=== PATIENT | female | born 1975 | race American Indian/Alaskan Native ===

== ENCOUNTER 2018-06-08 09:59 | Outpatient (CLI) | payer MEDICAID ==
[2018-06-08 10:59] VITALS: BP 102/65
[2018-06-08] MEDS ORDERED: LACTATED RINGERS 500 ML IV ONE (11:33)
[2018-06-08 12:04] LABS: Bacteria,Urine 1+ /HPF (Negative); Bilirubin,Urine NEG (Negative); Blood,Urine SM (Negative); Color,Urine Yellow (Yellow); Mucus,Urine 2+ /HPF; Protein,Urine <15 mg/dL mg/dL (Negative); Urobilinogen,Urine < 2.0 mg/dL (<2.0)
[2018-06-08] MEDS ORDERED: LACTATED RINGERS 1,000 ML IV ONE (13:57)
[2018-06-08] MEDS ORDERED: ROCEPHIN/NS 1 GM/50 ML 1 GM/50 ML BAG IV ONE (14:00)
== END 2018-06-08 15:40 | disposition home or self-care (01) ==
LOC: TRG 09:59
PROVIDERS: ATTEND Obstetrics & Gynecology
DX: O47.03 False labor before 37 completed weeks of gestation, third trimester (principal); Z3A.33 33 weeks gestation of pregnancy
CPT/HCPCS: 59025; 81001; 87086; 96365; 96368; J0696; J7120; 96360